=== PATIENT | male | born 1970 | race Two or more races ===

== ENCOUNTER 2018-10-18 09:54 | Inpatient (IN) | payer OTHER ==
[~2018-10-18] VITALS: Ht 188 cm; Wt 80.7 kg
[2018-10-18] VITALS: BP 92/44
--- NOTE | 2018-10-18 10:00 | NUR ---
SENT HERE FROM URGENT CARE FOR FURTHER EVAL OF SOB SINCE 89 ALSO C/O CP AND GENERALIZED BODY PAIN. PATIENT A/OX4, BREATHING EVEN AND UNLABORED,ATTACHED TO THE MONITOR, CHANGED INTO A GOWN. NEEDS ATTENDED.
[2018-10-18 10:29] LABS: BASOPHILS # (AUTO) 0.1 /CMM (0.0-0.2); BASOPHILS % (AUTO) 0.6 % (0.0-2.0); EOSINOPHILS % (AUTO) 0.1 % (0.0-6.0); HEMATOCRIT 41 % (39-51); HEMOGLOBIN 13.7 g/dL (13.5-17.5); LYMPHOCYTES # (AUTO) 0.3 /CMM (0.8-4.8); LYMPHOCYTES % (AUTO) 1.4 % (20.0-44.0); MEAN CORPUSCULAR HGB CONC 34 g/dl (31.0-36.0); MEAN CORPUSCULAR VOLUME 93 fL (80-96); MONOCYTES # (AUTO) 0.5 /CMM (0.1-1.30); MONOCYTES % (AUTO) 2.5 % (2.0-12.0); NEUTROPHILS # (AUTO) 20.8 /CMM (1.8-8.9); NEUTROPHILS % (AUTO) 95.4 % (43.0-81.0); PLATELET COUNT (AUTO) 155 /CMM (150-450); RED BLOOD CELL COUNT(AUTO) 4.39 MIL/uL (4.5-6.0); WHITE BLOOD COUNT (AUTO) 21.8 K/uL (4.3-11.0)
[2018-10-18 10:42] LABS: ALANINE AMINOTRANSFERASE 54 U/L (12-78); ALBUMIN 3.6 g/dL (3.4-5.0); ALKALINE PHOSPHATASE 60 U/L (46-116); BILIRUBIN,DIRECT 0.2 mg/dL (0.0-0.2); BILIRUBIN,TOTAL 1.1 mg/dL (0.2-1.0); CALCIUM, SERUM 9.2 mg/dL (8.5-10.1); CARBON DIOXIDE 27 mmol/L (21-32); CHLORIDE 104 mmol/L (98-107); GLUCOSE 149 mg/dL (74-106); SODIUM SERUM 139 mmol/L (136-145); TOTAL PROTEIN, SERUM 6.4 g/dL (6.4-8.2)
[2018-10-18 10:57] LABS: ASPARTATE AMINOTRANSFERASE 34 U/L (15-37); UREA NITROGEN, BLOOD 16 mg/dL (7-18)
[2018-10-18] MEDS ORDERED: IV NS 0.9% 250 ML IV ONE ×2 (11:15→16:03)
[2018-10-18] MEDS ORDERED: IOHEXOL-350 100 ML VIAL IV ONE ×2 (11:15→16:03)
[2018-10-18] MEDS ORDERED: CT SWABBABLE VALVE TRANS SET 1 EA INFUS.SET MC ONE ×2 (11:15→16:03)
[2018-10-18 12:30] LABS: APPEARANCE,URINE CLEAR (CLEAR); BILIRUBIN,URINE NEGATIVE (NEGATIVE); BLOOD, URINE NEGATIVE Ery/uL (NEGATIVE); COLOR,URINE DARK YELLO (YELLOW); KETONES,URINE NEGATIVE (NEGATIVE); LEUKOCYTE ESTERASE ,URINE NEGATIVE (NEGATIVE); NITRITE, URINE NEGATIVE (NEGATIVE); PH,URINE 8.5 (5.0-8.0); PROTEIN,URINE NEGATIVE (NEGATIVE); UGLUCOSE NEGATIVE (NEGATIVE); UROBILINOGEN,URINE 0.2 EU/dL (0.2)
--- NOTE | 2018-10-18 12:33 | NUR ---
CALLED NURSING SUP. FOR TELE BED
--- NOTE | 2018-10-18 13:34 | NUR ---
REPORT GIVEN TO MIRELLA RODARTE FOR RAQUEL
--- NOTE | 2018-10-18 13:55 | NUR ---
PIZZA CHEF NOTES PATIENT ADMITTED FROM ER 47Y/OLD MALE TELE ON Dx OF CHEST PAIN. TELE MONITOR ON SR-64. PATIENT WAS COMPLAINING OF CHEST CONSTANT PAIN 2/3. PUT ON O2-2LNC. V/S TAKEN BP -106/59, P-65,R-20, T-97.6,02-99 O2 -2LNC. DVT PUMP ON. SKIN ASSESSMENT DONE INTACT. PATIENT AMBULATORY SELF CARE. BELONGING CHECKED, PATIENT SIGN PAPERWORK. SEEN PATIENT BY FISH TENDER KEON MACIAS, AND MASTER AT ARMS Dr. CAMPBELL, CALL LIGHT WITHIN TO REACH. PATIENT TURN AND REPOSTION SELF. SAFETY PRECAUTION MAINTAINED ALL THE TIME.
--- NOTE | 2018-10-18 14:18 | NUR ---
PATIENT TRANSFERRED TO ROOM 315-1 VIA ACLS PROTOCOL. A/OX4, NO DISTRESS NOTED. NO SOB. ENDORSED TO CHRISTINE RODARTE.
[2018-10-18] MEDS ORDERED: ACETAMINOPHEN 325 MG TABLET PO PRN (14:30)
[2018-10-18] MEDS ORDERED: MORPHINE SULFATE INJ 2 MG/ML DISP.SYRIN IV PRN (14:30)
[2018-10-18] MEDS ORDERED: ZOLPIDEM TARTRATE 5 MG TABLET PO PRN (14:30)
[2018-10-18] MEDS ORDERED: ONDANSETRON HCL/PF 4 MG/2 ML VIAL IVP PRN (14:30)
[2018-10-18 15:00] LABS: CREATINE KINASE, TOTAL 79 U/L (39-308)
--- NOTE | 2018-10-18 15:03 | NUR ---
RN NOTES ADMINISTERED MORPHINE SULFATE 2 MG/ML IV PUSH FOR CONSTANT CHEST PAIN 2/10 IN THE UPPER CHEST. V/S TAKE BP 106/ 59, P-65, DVT PUMP ON, PATIENT ON O2-2L NC, CALL LIGHT WITHIN TO REACH, CONTINUED MONITORING.
[2018-10-18 15:17] VITALS: BP 106/59
[2018-10-18 15:55] LABS: CHOLESTEROL 130 mg/dL (<200); HDL CHOLESTEROL 46 mg/dL (40-60); LDL 77 mg/dL (0-99); TRIGLYCERIDES 36 mg/dL (30-150)
[2018-10-18] MEDS: ATORVASTATIN 10 MG TABLET PO SCH (16:00)
[2018-10-18] MEDS ORDERED: METOPROLOL TARTRATE INJ 5 MG/5 ML AMPUL ONE (16:02)
--- NOTE | 2018-10-18 16:15 | NUR ---
RN NOTES PATIENT COGNOS BI ADMINISTRATOR FOR CT ANGIOGRAM 3DWITH IMAGE, CONSENT FORM SIGNED. MEDICATION WERE ADMINISTERED FOR PAIN EFFECTIVE. CONTINUED MONITORING.
[2018-10-18] MEDS ORDERED: IV NS 0.9% 500 ML IV PRN (16:30)
[2018-10-18] MEDS ORDERED: NITROGLYCERIN 0.4 MG/TAB BOTTLE SL ONE (16:30)
[2018-10-18] MEDS ORDERED: METOPROLOL TARTRATE INJ 5 MG/5 ML AMPUL IVP ONE (16:30)
--- NOTE | 2018-10-18 16:50 | NUR ---
RN NOTES PATIENT BACK FROM ANGIOGRAM, WAS COMPLAINING OF HEADACHE COMMON SIDE EFFECT OF NITROGLYCERINE. CONTINUED MONITORING.
--- NOTE | 2018-10-18 18:30 | NUR ---
RN NOTES PATIENT STABLE REFUSED LIPITOR TO BE TAKEN, V/S STABLE. PATIENT STILL COMPLAINING OF HEADACHE. PER PATIENT REFUSED TAKE TYLENOL BECAUSE NOT HELPING. WILL BRING [facility] HOME MEDICATION. CALL LIGHT WITHIN TO REACH. ENDORSED ONCOMING NURSE FOLLOW PLAN OF CARE.
--- NOTE | 2018-10-18 18:36 | NUR ---
RN NOTES SANDED PATIENT HOME MEDICATION TO THE PHARMACY.
--- NOTE | 2018-10-18 19:20 | NUR ---
TELERN FULLY AWAKE, VISITOR AT BEDSIDE. EATING FOOD FORM HOME. NO DISCOMFORTS OF THIS TIME. NO SOB. PAINFREE. REIMINDED TO CALL STAFF FOR ANY ASSISTANCE OR DISCOMFORTS, CALL LIGHT WITHIN REACH. SAFETY PRECAUTIONS EMPHASIZED.
[2018-10-18 20:00] VITALS: BP 102/58
--- NOTE | 2018-10-18 21:17 | NUR ---
TELERN SLEEPING APPEARS COMFORTABLE. PROVIDED QUIET ENVI
--- NOTE | 2018-10-18 23:20 | NUR ---
TELERN BP 92/44 HEART RATE OF 48. REFUSED TO BE BOTHERED. PATIENT DENIES ANY DISCOMFORTS OF THIS TIME. ASYMPTOMATIC.ON THE MONITOR PATIENT IS SB TO SR AT RATE 65 TO 74. CLOSELY WATCHED.
--- NOTE | 2018-10-19 00:03 | NUR ---
TELERN INFORMED DR. SUAREZ REGARDING PATIENT V/S, HEAT RATE OF 45 AND BP 92/44. ORDERS RECEIVED. PATIENT REMAINS ASYMPTOMATIC, STILL DENIES ANY DISCOMFORTS. NO SOB. CLOSELY WATCHED.
[2018-10-19] MEDS ORDERED: IV NS 0.9% 500 ML IV ONE (00:30)
--- NOTE | 2018-10-19 00:38 | NUR ---
TELERN STILL REMAINS AYMPTOMATIC, DENIES ANY DISCOMFORTS. REMINDED TO CALL STAFF FOR ANY FURTHER DISCOMFORTS OR NEEDS.
--- NOTE | 2018-10-19 00:38 | NUR ---
TELERN NS BOLUS ON PROGRESS.
[2018-10-19 04:30] VITALS: BP 102/54
--- NOTE | 2018-10-19 06:50 | NUR ---
TELERN REMAINS SB ON THE MONITOR. V/S STABLE. CONTINUED MONITORING
[2018-10-19 06:53] LABS: BASOPHILS % (AUTO) 0.2 % (0.0-2.0); EOSINOPHILS % (AUTO) 1.3 % (0.0-6.0); HEMATOCRIT 39 % (39-51); LYMPHOCYTES # (AUTO) 0.8 /CMM (0.8-4.8); LYMPHOCYTES % (AUTO) 7.1 % (20.0-44.0); MEAN CORPUSCULAR HGB CONC 34 g/dl (31.0-36.0); MEAN CORPUSCULAR VOLUME 93 fL (80-96); MONOCYTES # (AUTO) 0.5 /CMM (0.1-1.30); NEUTROPHILS # (AUTO) 9.9 /CMM (1.8-8.9); NEUTROPHILS % (AUTO) 87.4 % (43.0-81.0); PLATELET COUNT (AUTO) 145 /CMM (150-450); RED BLOOD CELL COUNT(AUTO) 4.16 MIL/uL (4.5-6.0); WHITE BLOOD COUNT (AUTO) 11.3 K/uL (4.3-11.0)
[2018-10-19 07:13] LABS: CALCIUM, SERUM 8.7 mg/dL (8.5-10.1); PHOSPHORUS 3.4 mg/dL (2.5-4.9); POTASSIUM 4.5 mmol/L (3.5-5.1)
[2018-10-19 07:14] LABS: THYROID STIMULATING HORMONE 2.481 uIU/mL (0.358-3.74)
[2018-10-19] MEDS ORDERED: [UNRECOGNIZED DRUG - MIXTURE] PO PRN (07:30)
--- NOTE | 2018-10-19 07:42 | NUR ---
TELE/RN OPENING NOTE PATIENT IN BED IN STABLE CONDITION. A/O X 4. NO SIGNS OF ACUTE DISTRESS. NO COMPLAIN OF PAIN OR DISCOMFORT. ON TELE MONITOR NOTED SINUS AMNA WITH RATE OF 54. ALL NEEDS ATTENDED TO AT THIS TIME. CALL LIGHT WITHIN REACH. WILL CONTINUE TO MONITOR TO ENSURE SAFETY.
[2018-10-19 08:00] VITALS: BP 101/53
[2018-10-19] MEDS: ATORVASTATIN 10 MG TABLET PO SCH (08:10)
[2018-10-19] MEDS ORDERED: ASPIRIN EC 81 MG TABLET.DR PO SCH (09:00)
[2018-10-19] MEDS ORDERED: PRED20TA PO (10:45)
[2018-10-19] MEDS ORDERED: FLUT1DIS INH (10:45)
[2018-10-19] MEDS ORDERED: DOXY100C2 PO (10:45)
--- NOTE | 2018-10-19 12:04 | NUR ---
MS/BUSINESS ADVISOR PATIENT DISCHARGE HOME IN STABLE CONDITION. A/O X 4. NO SIGNS OF ACUTE DISTRESS. NO COMPLAIN OF PAIN OR DISCOMFORT. DISCHARGE EDUCATION AND TEACHINGS PROVIDED, VERBALIZED UNDERSTANDING. MADE AWARE TO FOLLOW UP WITH PRIMARY PHYSICIAN WITHIN A WEEK AND PRESCRIPTION PROVIDED, VERBALIZED UNDERSTANDINGS. NAME BAND AND IV LINE REMOVED. LEFT IN STABLE CONDITION SELF ACCOMPANIED.
== END 2018-10-19 11:50 | disposition home or self-care (01) | DRG 204 ==
LOC: ER 09:54 → TELE 13:02 → MED 10-19 08:49
PROVIDERS: ADMIT Nurse Practitioner Acute Care; ATTEND Nurse Practitioner Acute Care
DX: R07.81 Pleurodynia (principal); D72.829 Elevated white blood cell count, unspecified; J98.01 Acute bronchospasm
CPT/HCPCS: 36415; 71045-TC; 75574; 80048-TC; 80061-TC; 80076-TC; 81000-TC; 82550-TC; 83690-TC; 83735-TC; 84100-TC; 84443-TC; 84484-TC; 85025-TC; 85730-TC; 87081-TC; 93307-TC; G0378; J2270; J3490; J7040; J7050; Q9967